=== PATIENT | male | born 1945 | race Caucasian/White ===

== ENCOUNTER 2016-12-18 08:36 | Outpatient (CLI) | payer OTHER ==
[~2016-12-18] VITALS: Ht 170.2 cm; Wt 83.0 kg
[~2016-12-18 08:36] MED LIST: ASPI1TAB PO; CRES10TA32 PO; DORZ2SOL5 OU; LATA5OPD OU; MAGN500C2 PO; METO1TAB7 PO; PANT40TA2 PO
[2016-12-18] MEDS ORDERED: NS 1,000 ML IV SCH (08:45)
[2016-12-18] MEDS ORDERED: PROPOFOL 200 MG/20 ML VIAL As Ordered ONE (09:22)
--- NOTE | 2016-12-18 09:43 | ROOR ---
Patient Name: Abdirizak Sotomayor Procedure Date: 12/18/2016 9:29 AM Date of : 1945 Age: 71 Room: [facility] Gender: Male Note Status: Finalized Procedure: Total Colonoscopy to Cecum Indications: High risk colon cancer surveillance: Personal history of colonic polyps, Last colonoscopy: 2011 Providers: Jose Nassar MD Referring MD: Trina VAUGHAN MD Requesting Provider: Medicines: Monitored Anesthesia Care Complications: No immediate complications. Procedure: Pre-Anesthesia Assessment: - The heart rate, respiratory rate, oxygen saturations, blood pressure, adequacy of pulmonary ventilation, and response to care were monitored throughout the procedure. The Colonoscope was introduced through the anus and advanced to the cecum, identified by appendiceal orifice and ileocecal valve. The colonoscopy was performed without difficulty. The patient tolerated the procedure well. The quality of the bowel preparation was excellent. Findings: The perianal and digital rectal examinations were normal. Non-bleeding internal hemorrhoids were found during retroflexion. The hemorrhoids were small and Grade I (internal hemorrhoids that do not prolapse). Multiple small and large-mouthed diverticula were found in the entire colon. The exam was otherwise without abnormality on direct and retroflexion views. Impression: - Non-bleeding internal hemorrhoids. - Diverticulosis in the entire examined colon. - The examination was otherwise normal on direct and retroflexion views. - No specimens collected. - The exam was otherwise normal to the cecum. Recommendation: - Patient has a contact number available for emergencies. The signs and symptoms of potential delayed complications were discussed with the patient. Return to normal activities tomorrow. Written discharge instructions were provided to the patient. - High fiber diet. - Discharge patient to home. - Continue present medications. - Repeat colonoscopy for symptoms only. - Return to referring physician. - The findings and recommendations were discussed with the patient's family. Jose Nassar MD Jose Nassar MD 12/18/2016 9:43:25 AM This report has been signed electronically. Number of Addenda: 0 Note Initiated On: 12/18/2016 9:29 AM Estimated Blood Loss: Estimated blood loss: none.
[2016-12-18 10:13] VITALS: BP 132/73
== END 2016-12-18 10:15 | disposition home or self-care (01) ==
LOC: M OPP 08:36
PROVIDERS: ATTEND Internal Medicine Gastroenterology
DX: Z12.11 Encounter for screening for malignant neoplasm of colon (principal); Z86.010 Personal history of colon polyps; K64.0 First degree hemorrhoids; K57.30 Diverticulosis of large intestine without perforation or abscess without bleeding; I10 Essential (primary) hypertension; E78.5 Hyperlipidemia, unspecified; K57.92 Diverticulitis of intestine, part unspecified, without perforation or abscess without bleeding; R12 Heartburn; H40.9 Unspecified glaucoma; Z87.891 Personal history of nicotine dependence; Z79.82 Long term (current) use of aspirin; Z79.899 Other long term (current) drug therapy

== ENCOUNTER → 2018-02-10 | Outpatient (CLI) | payer OTHER ==
[2018-02-10 12:41] LABS: BASO # 0.1 10^3/uL (0.0-0.2); BASO % 0.5 % (0.0-1.0); EOS # 0.6 10^3/uL (0.0-0.50); EOS % 6.2 % (0.0-3.0); HEMATOCRIT 43.1 % (42.0-52.0); HEMOGLOBIN 14.7 g/dl (13.5-17.5); IMMATURE GRANULOCYTE % 0.5 % (0-3.0); LYMPH # 1.6 10^3/uL (1.5-4.5); LYMPH % 16.5 % (24.0-44.0); MEAN CORPUSCULAR HEMOGLOBIN 32.8 pg (27.0-33.0); MEAN CORPUSCULAR HGB CONC 34.1 g/dl (32.0-36.5); MEAN CORPUSCULAR VOLUME 96.2 fl (80.0-96.0); MONO # 1.2 10^3/uL (0.0-0.8); MONO % 12.7 % (0.0-5.0); NEUTROPHILS % 63.6 % (36.0-66.0); PLATELET COUNT, AUTOMATED 200 10^3/uL (150-450); RED BLOOD COUNT 4.48 10^6/uL (4.30-6.10); RED CELL DISTRIBUTION WIDTH 12.6 % (11.5-14.5); WHITE BLOOD COUNT 9.5 10^3/uL (4.0-10.0)
[2018-02-10 13:01] LABS: ALBUMIN/GLOBULIN RATIO 1.08 (1.00-1.93); ALKALINE PHOSPHATASE 115 U/L (45-117); ALT/SGPT 41 U/L (12-78); ANION GAP 5 MEQ/L (8-16); AST/SGOT 64 U/L (7-37); BILIRUBIN,TOTAL 0.5 MG/DL (0.2-1.0); BLOOD UREA NITROGEN 11 MG/DL (7-18); CALCIUM LEVEL 9.5 MG/DL (8.8-10.2); CARBON DIOXIDE LEVEL 27 MEQ/L (21-32); CHLORIDE LEVEL 110 MEQ/L (98-107); CHOLESTEROL LEVEL 190 MG/DL (<200); CHOLESTEROL RISK RATIO 3.392 (<5); CREATININE FOR GFR 1.09 MG/DL (0.70-1.30); GLOMERULAR FILTRATION RATE > 60.0 (>42); GLUCOSE, FASTING 89 MG/DL (70-100); HDL CHOLESTEROL 56 MG/DL (>40); LDL CHOLESTEROL 110 MG/DL (<100); NON-HDL-C 134 MG/DL; POTASSIUM SERUM 5.2 MEQ/L (3.5-5.1); SODIUM LEVEL 142 MEQ/L (136-145); TOTAL PROTEIN 7.7 GM/DL (6.4-8.2); TRIGLYCERIDES LEVEL 118 MG/DL (<150)
== END ==
LOC: M WUC 09:49
DX: I10 Essential (primary) hypertension (principal)
CPT/HCPCS: 80053

== ENCOUNTER → 2019-02-11 | Outpatient (CLI) | payer OTHER ==
[~2019-02-11] MED LIST changes: -ASPI1TAB PO; +ASPI81TA26 PO; +CRES10TA PO; -CRES10TA32 PO; +LATA0.0013 OU; -LATA5OPD OU; -PANT40TA2 PO; +PANT40TA3 PO
[2019-02-11 11:07] LABS: ALBUMIN 3.6 GM/DL (3.2-5.2); ALT/SGPT 33 U/L (12-78); BILIRUBIN,TOTAL 0.4 MG/DL (0.2-1.0); BLOOD UREA NITROGEN 17 MG/DL (7-18); CALCIUM LEVEL 9.3 MG/DL (8.8-10.2); CARBON DIOXIDE LEVEL 26 MEQ/L (21-32); CHLORIDE LEVEL 110 MEQ/L (98-107); CHOLESTEROL LEVEL 167 MG/DL (<200); GLOMERULAR FILTRATION RATE > 60.0 (>42); GLUCOSE, FASTING 87 MG/DL (70-100); HDL CHOLESTEROL 53 MG/DL (>40); LDL CHOLESTEROL 95 MG/DL (<100); NON-HDL-C 114 MG/DL; POTASSIUM SERUM 4.7 MEQ/L (3.5-5.1); SODIUM LEVEL 141 MEQ/L (136-145); TOTAL PROTEIN 7.3 GM/DL (6.4-8.2); TRIGLYCERIDES LEVEL 94 MG/DL (<150)
[2019-02-11 11:13] LABS: BASO # 0.1 10^3/uL (0.0-0.2); BASO % 0.6 % (0.0-1.0); EOS # 0.7 10^3/uL (0.0-0.5); EOS % 6.7 % (0.0-3.0); HEMATOCRIT 40.2 % (42.0-52.0); HEMOGLOBIN 13.8 g/dl (13.5-17.5); LYMPH # 1.6 10^3/uL (1.5-5.0); LYMPH % 16.3 % (24.0-44.0); MEAN CORPUSCULAR HGB CONC 34.3 g/dl (32.0-36.5); MEAN CORPUSCULAR VOLUME 96.2 fl (80.0-96.0); MONO # 1.2 10^3/uL (0.0-0.8); MONO % 12.2 % (0.0-5.0); NEUTROPHILS # 6.3 10^3/uL (1.5-8.5); NEUTROPHILS % 63.4 % (36.0-66.0); PLATELET COUNT, AUTOMATED 197 10^3/uL (150-450); RED BLOOD COUNT 4.18 10^6/uL (4.30-6.10); WHITE BLOOD COUNT 9.9 10^3/uL (4.0-10.0)
== END ==
LOC: M WUC 08:32
PROVIDERS: ATTEND Family Medicine
DX: I10 Essential (primary) hypertension (principal)

== ENCOUNTER → 2020-02-15 | Outpatient (CLI) | payer OTHER ==
[~2020-02-15] MED LIST changes: +PANT40TA29 PO; -PANT40TA3 PO
[2020-02-15 12:32] LABS: BASO # 0.1 10^3/uL (0.0-0.2); BASO % 0.7 % (0.0-1.0); EOS # 0.6 10^3/uL (0.0-0.5); HEMATOCRIT 39.9 % (42.0-52.0); HEMOGLOBIN 13.2 g/dl (13.5-17.5); LYMPH # 1.9 10^3/uL (1.5-5.0); LYMPH % 22.1 % (24.0-44.0); MEAN CORPUSCULAR HEMOGLOBIN 31.7 pg (27.0-33.0); MEAN CORPUSCULAR HGB CONC 33.1 g/dl (32.0-36.5); MEAN CORPUSCULAR VOLUME 95.9 fl (80.0-96.0); MONO # 1.1 10^3/uL (0.0-0.8); MONO % 12.5 % (0.0-5.0); NEUTROPHILS # 4.9 10^3/uL (1.5-8.5); NEUTROPHILS % 56.9 % (36.0-66.0); PLATELET COUNT, AUTOMATED 192 10^3/uL (150-450); RED BLOOD COUNT 4.16 10^6/uL (4.30-6.10); WHITE BLOOD COUNT 8.6 10^3/uL (4.0-10.0)
[2020-02-15 13:15] LABS: ALBUMIN 3.6 GM/DL (3.2-5.2); ALT/SGPT 38 U/L (12-78); BILIRUBIN,TOTAL 0.5 MG/DL (0.2-1.0); BLOOD UREA NITROGEN 13 MG/DL (7-18); CALCIUM LEVEL 9.2 MG/DL (8.8-10.2); CARBON DIOXIDE LEVEL 24 MEQ/L (21-32); CHLORIDE LEVEL 110 MEQ/L (98-107); CHOLESTEROL LEVEL 171 MG/DL (<200); CREATININE FOR GFR 1.18 MG/DL (0.70-1.30); GLOMERULAR FILTRATION RATE > 60.0 (>42); GLUCOSE, FASTING 88 MG/DL (70-100); HDL CHOLESTEROL 57 MG/DL (>40); LDL CHOLESTEROL 95 MG/DL (<100); NON-HDL-C 114 MG/DL; POTASSIUM SERUM 4.1 MEQ/L (3.5-5.1); SODIUM LEVEL 142 MEQ/L (136-145); TOTAL PROTEIN 7.2 GM/DL (6.4-8.2); TRIGLYCERIDES LEVEL 95 MG/DL (<150)
== END ==
LOC: M WUC 09:32
PROVIDERS: ATTEND Family Medicine
DX: I10 Essential (primary) hypertension (principal)

== ENCOUNTER → 2020-06-30 | Outpatient (CLI) | payer OTHER ==
[2020-06-30 11:54] LABS: BASO # 0.1 10^3/uL (0.0-0.2); BASO % 0.6 % (0.0-1.0); EOS # 0.5 10^3/uL (0.0-0.5); HEMATOCRIT 41.3 % (42.0-52.0); HEMOGLOBIN 13.8 g/dl (13.5-17.5); LYMPH # 1.4 10^3/uL (1.5-5.0); LYMPH % 15.6 % (24.0-44.0); MEAN CORPUSCULAR HEMOGLOBIN 31.8 pg (27.0-33.0); MEAN CORPUSCULAR HGB CONC 33.4 g/dl (32.0-36.5); MEAN CORPUSCULAR VOLUME 95.2 fl (80.0-96.0); MONO # 1.2 10^3/uL (0.0-0.8); MONO % 13.2 % (2.0-8.0); NEUTROPHILS # 5.7 10^3/uL (1.5-8.5); NEUTROPHILS % 64.1 % (36.0-66.0); PLATELET COUNT, AUTOMATED 202 10^3/uL (150-450); RED BLOOD COUNT 4.34 10^6/uL (4.30-6.10); WHITE BLOOD COUNT 8.8 10^3/uL (4.0-10.0)
== END ==
LOC: M WUC 10:01
PROVIDERS: ATTEND Family Medicine
DX: R71.8 Other abnormality of red blood cells (principal)

== ENCOUNTER → 2020-11-28 | Outpatient (CLI) | payer OTHER ==
--- NOTE | 2020-11-28 21:36 | REP ---
INDICATION: R05 COUGH COMPARISON: 02/20/2010 TECHNIQUE: PA and lateral. FINDINGS: Mediastinum and cardiac silhouette are within normal limits and stable. Lung fernandez demonstrate chronic changes. Calcified hilar lymph nodes and scattered calcified pulmonary parenchymal granulomata are again identified and suggest chronic changes. No acute consolidation, effusion, or pneumothorax. Bridging osteophytes and degenerative changes to the thoracic spine noted. IMPRESSION: Chronic granulomatous disease. No acute process appreciated. <Electronically signed by Ralph Israel > 11/28/20 [id number]
== END ==
LOC: M WUC 11:32
PROVIDERS: ATTEND Nurse Practitioner Family
DX: R05 Cough (principal); D71 Functional disorders of polymorphonuclear neutrophils

== ENCOUNTER → 2021-02-14 | Outpatient (CLI) | payer OTHER ==
[2021-02-14 10:20] LABS: BASO # 0.1 10^3/uL (0.0-0.2); BASO % 0.7 % (0.0-1.0); EOS # 0.5 10^3/uL (0.0-0.5); HEMATOCRIT 38.7 % (42.0-52.0); HEMOGLOBIN 13.3 g/dl (13.5-17.5); LYMPH # 1.5 10^3/uL (1.5-5.0); LYMPH % 19.2 % (24.0-44.0); MEAN CORPUSCULAR HEMOGLOBIN 32.5 pg (27.0-33.0); MEAN CORPUSCULAR HGB CONC 34.4 g/dl (32.0-36.5); MEAN CORPUSCULAR VOLUME 94.6 fl (80.0-96.0); MONO # 0.9 10^3/uL (0.0-0.8); MONO % 12.2 % (2.0-8.0); NEUTROPHILS # 4.7 10^3/uL (1.5-8.5); NEUTROPHILS % 61.2 % (36.0-66.0); PLATELET COUNT, AUTOMATED 196 10^3/uL (150-450); RED BLOOD COUNT 4.09 10^6/uL (4.30-6.10); WHITE BLOOD COUNT 7.7 10^3/uL (4.0-10.0)
[2021-02-14 10:46] LABS: ALBUMIN 3.3 GM/DL (3.2-5.2); ALT/SGPT 23 U/L (12-78); BILIRUBIN,TOTAL 0.5 MG/DL (0.2-1.0); BLOOD UREA NITROGEN 11 MG/DL (7-18); CALCIUM LEVEL 9.1 MG/DL (8.8-10.2); CARBON DIOXIDE LEVEL 27 MEQ/L (21-32); CHLORIDE LEVEL 109 MEQ/L (98-107); CHOLESTEROL LEVEL 179 MG/DL (<200); CHOLESTEROL RISK RATIO 2.934 (<5); CREATININE FOR GFR 1.07 MG/DL (0.70-1.30); GLOMERULAR FILTRATION RATE > 60.0 (>42); GLUCOSE, FASTING 85 MG/DL (70-100); HDL CHOLESTEROL 61 MG/DL (>40); LDL CHOLESTEROL 101 MG/DL (<100); NON-HDL-C 118 MG/DL; POTASSIUM SERUM 4.5 MEQ/L (3.5-5.1); SODIUM LEVEL 140 MEQ/L (136-145); TRIGLYCERIDES LEVEL 83 MG/DL (<150)
== END ==
LOC: M WUC 09:24
PROVIDERS: ATTEND Family Medicine
DX: I10 Essential (primary) hypertension (principal)

== ENCOUNTER → 2022-02-13 | Outpatient (CLI) | payer OTHER ==
[2022-02-13 13:01] LABS: ALBUMIN 3.5 GM/DL (3.2-5.2); ALT/SGPT 28 U/L (12-78); BILIRUBIN,TOTAL 0.5 MG/DL (0.2-1.0); BLOOD UREA NITROGEN 13 MG/DL (7-18); CALCIUM LEVEL 9.3 MG/DL (8.8-10.2); CARBON DIOXIDE LEVEL 27 MEQ/L (21-32); CHLORIDE LEVEL 110 MEQ/L (98-107); CHOLESTEROL LEVEL 168 MG/DL (<200); CHOLESTEROL RISK RATIO 2.896 (<5); CREATININE FOR GFR 1.16 MG/DL (0.70-1.30); GLOMERULAR FILTRATION RATE > 60.0 (>42); GLUCOSE, FASTING 99 MG/DL (70-100); HDL CHOLESTEROL 58 MG/DL (>40); LDL CHOLESTEROL 90 MG/DL (<100); NON-HDL-C 110 MG/DL; POTASSIUM SERUM 5.5 MEQ/L (3.5-5.1); SODIUM LEVEL 141 MEQ/L (136-145); TOTAL PROTEIN 7.2 GM/DL (6.4-8.2); TRIGLYCERIDES LEVEL 98 MG/DL (<150)
== END ==
LOC: M WUC 09:11
PROVIDERS: ATTEND Nurse Practitioner Family
DX: E78.2 Mixed hyperlipidemia (principal); I10 Essential (primary) hypertension

== ENCOUNTER → 2023-02-13 | Outpatient (CLI) | payer OTHER ==
[2023-02-13 12:25] LABS: BASO # 0.1 10^3/uL (0.0-0.2); BASO % 0.7 % (0.0-1.0); EOS # 0.5 10^3/uL (0.0-0.5); EOS % 6.1 % (0.0-3.0); HEMATOCRIT 40.2 % (42.0-52.0); HEMOGLOBIN 13.6 g/dl (13.5-17.5); LYMPH # 1.5 10^3/uL (1.5-5.0); LYMPH % 17.7 % (24.0-44.0); MEAN CORPUSCULAR HEMOGLOBIN 32.3 pg (27.0-33.0); MEAN CORPUSCULAR HGB CONC 33.8 g/dl (32.0-36.5); MEAN CORPUSCULAR VOLUME 95.5 fl (80.0-96.0); MONO # 1.1 10^3/uL (0.0-0.8); MONO % 13.2 % (2.0-8.0); NEUTROPHILS # 5.3 10^3/uL (1.5-8.5); NEUTROPHILS % 61.7 % (36.0-66.0); PLATELET COUNT, AUTOMATED 238 10^3/uL (150-450); RED BLOOD COUNT 4.21 10^6/uL (4.30-6.10); WHITE BLOOD COUNT 8.5 10^3/uL (4.0-10.0)
[2023-02-13 12:54] LABS: ALBUMIN 3.7 G/DL (3.2-5.2); ALKALINE PHOSPHATASE 106 U/L (46-116); ALT/SGPT 26 U/L (7.0-40); AST/SGOT 42 U/L (<34); BILIRUBIN,TOTAL 0.6 MG/DL (0.3-1.2); BLOOD UREA NITROGEN 12 MG/DL (9-23); CALCIUM LEVEL 9.4 MG/DL (8.3-10.6); CARBON DIOXIDE LEVEL 25 MMOL/L (20-31); CHLORIDE LEVEL 104 MMOL/L (98-107); CREATININE FOR GFR 1.13 MG/DL (0.70-1.30); GLOMERULAR FILTRATION RATE > 60.0 (>42); GLUCOSE, FASTING 92 MG/DL (74-106); POTASSIUM SERUM 4.6 MMOL/L (3.5-5.1); SODIUM LEVEL 138 MMOL/L (136-145); TOTAL PROTEIN 7.5 G/DL (5.7-8.2)
== END ==
LOC: M WUC 09:14
PROVIDERS: ATTEND Nurse Practitioner Family
DX: I10 Essential (primary) hypertension (principal)

== ENCOUNTER → 2023-05-17 | Outpatient (CLI) | payer OTHER ==
[2023-05-17 12:55] LABS: BASO % 0.5 % (0.0-1.0); EOS # 0.5 10^3/uL (0.0-0.5); EOS % 5.9 % (0.0-3.0); HEMOGLOBIN 13.7 g/dl (13.5-17.5); LYMPH # 1.3 10^3/uL (1.5-5.0); LYMPH % 16.1 % (24.0-44.0); MEAN CORPUSCULAR HEMOGLOBIN 32.3 pg (27.0-33.0); MEAN CORPUSCULAR HGB CONC 34.3 g/dl (32.0-36.5); MEAN CORPUSCULAR VOLUME 94.3 fl (80.0-96.0); MONO % 12.4 % (2.0-8.0); NEUTROPHILS # 5.2 10^3/uL (1.5-8.5); NEUTROPHILS % 64.7 % (36.0-66.0); PLATELET COUNT, AUTOMATED 223 10^3/uL (150-450); RED BLOOD COUNT 4.24 10^6/uL (4.30-6.10)
[2023-05-17 13:25] LABS: BLOOD UREA NITROGEN 14 MG/DL (9-23); CALCIUM LEVEL 8.8 MG/DL (8.3-10.6); CARBON DIOXIDE LEVEL 25 MMOL/L (20-31); CHLORIDE LEVEL 109 MMOL/L (98-107); CREATININE FOR GFR 1.15 MG/DL (0.70-1.30); GLOMERULAR FILTRATION RATE > 60.0 (>42); GLUCOSE, FASTING 83 MG/DL (74-106); POTASSIUM SERUM 4.6 MMOL/L (3.5-5.1); SODIUM LEVEL 141 MMOL/L (136-145)
== END ==
LOC: M WUC 09:20
PROVIDERS: ATTEND Nurse Practitioner Family
DX: I10 Essential (primary) hypertension (principal)

== ENCOUNTER → 2024-02-21 | Outpatient (CLI) | payer OTHER ==
[2024-02-21 12:31] LABS: BASO # 0.1 10^3/uL (0.0-0.2); BASO % 0.5 % (0.0-1.0); EOS # 0.5 10^3/uL (0.0-0.5); EOS % 4.6 % (0.0-3.0); HEMATOCRIT 39.2 % (42.0-52.0); HEMOGLOBIN 13.4 g/dl (13.5-17.5); LYMPH # 1.1 10^3/uL (1.5-5.0); LYMPH % 11.3 % (24.0-44.0); MEAN CORPUSCULAR HEMOGLOBIN 32.3 pg (27.0-33.0); MEAN CORPUSCULAR HGB CONC 34.2 g/dl (32.0-36.5); MEAN CORPUSCULAR VOLUME 94.5 fl (80.0-96.0); MONO # 1.3 10^3/uL (0.0-0.8); MONO % 12.8 % (2.0-8.0); NEUTROPHILS % 70.3 % (36.0-66.0); PLATELET COUNT, AUTOMATED 207 10^3/uL (150-450); RED BLOOD COUNT 4.15 10^6/uL (4.30-6.10)
[2024-02-21 12:56] LABS: ALBUMIN 3.3 G/DL (3.2-5.2); ALKALINE PHOSPHATASE 109 U/L (40-129); ALT/SGPT 29 U/L (7.0-40); AST/SGOT 54 U/L (<34); BILIRUBIN,TOTAL 0.7 MG/DL (0.3-1.2); BLOOD UREA NITROGEN 14 MG/DL (9-23); CALCIUM LEVEL 9.4 MG/DL (8.3-10.6); CARBON DIOXIDE LEVEL 24 MMOL/L (20-31); CHLORIDE LEVEL 108 MMOL/L (98-107); CREATININE FOR GFR 1.09 MG/DL (0.70-1.30); GLOMERULAR FILTRATION RATE > 60.0 (>42); GLUCOSE, FASTING 99 MG/DL (74-106); POTASSIUM SERUM 4.4 MMOL/L (3.5-5.1); SODIUM LEVEL 141 MMOL/L (136-145); TOTAL PROTEIN 7.4 G/DL (5.7-8.2)
== END ==
LOC: M WUC 09:18
PROVIDERS: ATTEND Nurse Practitioner Family
DX: I10 Essential (primary) hypertension (principal)

== ENCOUNTER 2024-11-11 15:11 | Inpatient (IN) | payer OTHER, MEDICARE ==
[~2024-11-11] VITALS: Ht 170.2 cm; Wt 75.8 kg
[~2024-11-11 15:11] MED LIST changes: -CALC500T61 PO; -MAGN400T2 PO; -NORV5TAB PO; -ROSU10TA61 PO; -XALA0.007 OU
[2024-11-11] MEDS ORDERED: ROSU10TA61 PO (16:52)
[2024-11-11] MEDS ORDERED: XALA0.007 OU (16:52)
[2024-11-11] MEDS ORDERED: HOME MED LIST COMPLETE! XX SCH (16:55)
[2024-11-11 18:21] LABS: BASO # 0.0 10^3/uL (0.0-0.2); BASO % 0.1 % (0.0-1.0); EOS # 0.0 10^3/uL (0.0-0.5); EOS % 0.0 % (0.0-3.0); LYMPH # 0.8 10^3/uL (1.5-5.0); LYMPH % 5.6 % (24.0-44.0); MONO # 0.9 10^3/uL (0.0-0.8); MONO % 6.3 % (2.0-8.0); NEUTROPHILS # 12.2 10^3/uL (1.5-8.5); NEUTROPHILS % 87.5 % (36.0-66.0); PLATELET COUNT, AUTOMATED 291 10^3/uL (150-450)
[2024-11-11] MEDS: NS 500 ML IV ONE (18:40)
[2024-11-11 20:03] LABS: CALCIUM LEVEL 8.0 MG/DL (8.3-10.6); CARBON DIOXIDE LEVEL 12.0 MMOL/L (20-31); CHLORIDE LEVEL 103.0 MMOL/L (98-107); CREATININE FOR GFR 4.81 MG/DL (0.70-1.30); GLOMERULAR FILTRATION RATE 11.6 (>42); MAGNESIUM LEVEL 0.7 MG/DL (1.8-2.4); POTASSIUM SERUM 5.7 MMOL/L (3.5-5.1); SODIUM LEVEL 140.0 MMOL/L (136-145)
[2024-11-11] MEDS: MAG SULF 1GM/100ML (MAG RUN) 1 GM in IV 1 EA IV ONE (20:23)
[2024-11-11 22:49] LABS: CALCIUM LEVEL 7.3 MG/DL (8.3-10.6); CARBON DIOXIDE LEVEL 12.0 MMOL/L (20-31); CHLORIDE LEVEL 106.0 MMOL/L (98-107); CREATININE FOR GFR 4.71 MG/DL (0.70-1.30); GLOMERULAR FILTRATION RATE 11.9 (>42); MAGNESIUM LEVEL 1.6 MG/DL (1.8-2.4); POTASSIUM SERUM 5.1 MMOL/L (3.5-5.1); SODIUM LEVEL 141.0 MMOL/L (136-145)
[2024-11-11] MEDS ORDERED: ONDANSETRON 4MG 2ML VIAL IV PRN (23:45)
[2024-11-12] LABS: KETONE, URINE AUTO RFX TRACE mg/dL (NEGATIVE); MUCUS, URINE RFX SMALL (NEGATIVE); NITRITE, URINE AUTO RFX NEGATIVE (NEGATIVE); RBC, URINE AUTO RFX 1 /HPF (0-3); SQUAM EPITHELIAL CELL UR AURFX 2 /HPF (0-6); WBC, URINE AUTO RFX 2 /HPF (0-3)
[2024-11-12] MEDS: LR 1,000 ML IV SCH (00:05)
[2024-11-12 00:25] LABS: LEUKOCYTE ESTERASE UR AUTO RFX 2+ (NEGATIVE)
[2024-11-12 00:38] LABS: BASO # 0.0 10^3/uL (0.0-0.2); BASO % 0.1 % (0.0-1.0); EOS # 0.0 10^3/uL (0.0-0.5); EOS % 0.0 % (0.0-3.0); LYMPH # 0.8 10^3/uL (1.5-5.0); LYMPH % 4.9 % (24.0-44.0); MONO # 1.3 10^3/uL (0.0-0.8); MONO % 8.7 % (2.0-8.0); NEUTROPHILS # 13.1 10^3/uL (1.5-8.5); NEUTROPHILS % 86.0 % (36.0-66.0); PLATELET COUNT, AUTOMATED 250 10^3/uL (150-450)
[2024-11-12 00:52] LABS: VITAMIN B12 LEVEL 671.0 PG/ML (211-911)
[2024-11-12 00:54] LABS: ALT/SGPT 16.0 U/L (7.0-40); AST/SGOT 22.0 U/L (<34); CALCIUM LEVEL 7.6 MG/DL (8.3-10.6); CARBON DIOXIDE LEVEL 12.0 MMOL/L (20-31); CHLORIDE LEVEL 104.0 MMOL/L (98-107); CREATININE FOR GFR 4.98 MG/DL (0.70-1.30); GLOMERULAR FILTRATION RATE 11.2 (>42); MAGNESIUM LEVEL 1.1 MG/DL (1.8-2.4); POTASSIUM SERUM 4.7 MMOL/L (3.5-5.1); SODIUM LEVEL 140.0 MMOL/L (136-145)
[2024-11-12] MEDS: MAG SULF 1GM/100ML (MAG RUN) 1 GM in IV 1 EA IV SCH (02:54)
[2024-11-12] MEDS: NS (Normal Saline) 0.9% 1,000 ML IV STA (02:54)
[2024-11-12 06:40] LABS: BASO # 0.0 10^3/uL (0.0-0.2); BASO % 0.1 % (0.0-1.0); EOS # 0.0 10^3/uL (0.0-0.5); EOS % 0.0 % (0.0-3.0); LYMPH # 0.8 10^3/uL (1.5-5.0); LYMPH % 5.7 % (24.0-44.0); MONO # 1.3 10^3/uL (0.0-0.8); MONO % 9.1 % (2.0-8.0); NEUTROPHILS # 11.7 10^3/uL (1.5-8.5); NEUTROPHILS % 84.7 % (36.0-66.0); PLATELET COUNT, AUTOMATED 204 10^3/uL (150-450)
[2024-11-12 07:11] LABS: CALCIUM LEVEL 7.0 MG/DL (8.3-10.6); CARBON DIOXIDE LEVEL 13.0 MMOL/L (20-31); CHLORIDE LEVEL 106.0 MMOL/L (98-107); CREATININE FOR GFR 4.82 MG/DL (0.70-1.30); GLOMERULAR FILTRATION RATE 11.6 (>42); MAGNESIUM LEVEL 1.9 MG/DL (1.8-2.4); POTASSIUM SERUM 4.3 MMOL/L (3.5-5.1); SODIUM LEVEL 139.0 MMOL/L (136-145)
[2024-11-12 08:02] LABS: C REACTIVE PROTEIN QUANTITATIV 0.74 MG/DL (<1.0)
[2024-11-12] MEDS: PANTOPRAZOLE 40MG VIAL IV SCH (08:11)
[2024-11-12] MEDS: SODIUM BICARBONATE 150 MEQ in D5W 1,000 ML IV SCH (09:16)
[2024-11-12 14:50] VITALS: BP 127/77; TEMP 97.7; O2SAT 98
[2024-11-12 16:48] LABS: CALCIUM LEVEL 6.8 MG/DL (8.3-10.6); CARBON DIOXIDE LEVEL 18.0 MMOL/L (20-31); CHLORIDE LEVEL 106.0 MMOL/L (98-107); CREATININE FOR GFR 4.52 MG/DL (0.70-1.30); GLOMERULAR FILTRATION RATE 12.5 (>42); POTASSIUM SERUM 3.7 MMOL/L (3.5-5.1); SODIUM LEVEL 141.0 MMOL/L (136-145)
[2024-11-12 19:47] VITALS: BP 111/72; TEMP 97.9; O2SAT 99
[2024-11-12] MEDS: ASPIRIN 81 MG ENTERIC TABLET PO SCH (20:57)
[2024-11-12] MEDS: DORZOLAMIDE/TIMOLOL 10 ML OPHTHALMIC SOLN OU SCH (20:57)
[2024-11-12] MEDS: LATANOPROST 0.005% OPHTH SOLN 2.5 ML OU SCH (20:57)
[2024-11-12] MEDS: HEPARIN SOD 5000 UNITS/ML 1 ML VIAL/SYRINGE SQ SCH (21:00)
[2024-11-13 03:43] VITALS: BP 115/73; TEMP 97.9; O2SAT 98
[2024-11-13 06:20] LABS: BASO # 0.0 10^3/uL (0.0-0.2); BASO % 0.1 % (0.0-1.0); EOS # 0.1 10^3/uL (0.0-0.5); EOS % 0.5 % (0.0-3.0); LYMPH # 1.3 10^3/uL (1.5-5.0); LYMPH % 13.6 % (24.0-44.0); MONO # 1.1 10^3/uL (0.0-0.8); MONO % 12.3 % (2.0-8.0); NEUTROPHILS # 6.8 10^3/uL (1.5-8.5); NEUTROPHILS % 73.2 % (36.0-66.0); PLATELET COUNT, AUTOMATED 154 10^3/uL (150-450)
[2024-11-13 06:48] LABS: CALCIUM LEVEL 6.3 MG/DL (8.3-10.6); CARBON DIOXIDE LEVEL 26.0 MMOL/L (20-31); CHLORIDE LEVEL 101.0 MMOL/L (98-107); CREATININE FOR GFR 4.0 MG/DL (0.70-1.30); GLOMERULAR FILTRATION RATE 14.5 (>42); MAGNESIUM LEVEL 1.2 MG/DL (1.8-2.4); POTASSIUM SERUM 3.1 MMOL/L (3.5-5.1); SODIUM LEVEL 142.0 MMOL/L (136-145)
[2024-11-13] MEDS: MAG SULF 1GM/100ML (MAG RUN) 1 GM in IV 1 EA IV SCH (08:15)
[2024-11-13] MEDS: KCL 20MEQ in NS 1000ML 1,000 ML IV SCH (08:15)
[2024-11-13] MEDS: ROSUVASTATIN 10 MG TAB PO SCH (08:16)
[2024-11-13] MEDS: METOPROLOL SUCC. 50 MG *XL* TAB PO SCH (08:17)
[2024-11-13] MEDS: POTASSIUM CHLORIDE 10MEQ SR TABLET PO ONE (08:32)
[2024-11-13] MEDS: CALCIUM CARBONATE 500 MG CHEW U/D PO SCH (09:41)
[2024-11-13 12:00] VITALS: BP 131/76; TEMP 97.5; O2SAT 96
[2024-11-13 12:26] LABS: TOTAL 25(OH) VITAMIN D 76.4 NG/ML (20.0-100.0)
[2024-11-13] MEDS: CALCIUM GLUCONATE 1,000 MG in DEXTROSE 5% (D5W) MINI-BAG PLU 100 ML IV ONE (12:45)
[2024-11-13 20:27] VITALS: BP 108/72; TEMP 97.9; O2SAT 97
[2024-11-14 04:17] VITALS: BP 125/71; TEMP 97.9; O2SAT 96
[2024-11-14 06:18] LABS: BASO # 0.0 10^3/uL (0.0-0.2); BASO % 0.2 % (0.0-1.0); EOS # 0.1 10^3/uL (0.0-0.5); EOS % 0.7 % (0.0-3.0); LYMPH # 0.9 10^3/uL (1.5-5.0); LYMPH % 11.2 % (24.0-44.0); MONO # 1.3 10^3/uL (0.0-0.8); MONO % 15.3 % (2.0-8.0); NEUTROPHILS # 5.9 10^3/uL (1.5-8.5); NEUTROPHILS % 72.1 % (36.0-66.0); PLATELET COUNT, AUTOMATED 144 10^3/uL (150-450)
[2024-11-14 06:58] LABS: CALCIUM LEVEL 6.9 MG/DL (8.3-10.6); CARBON DIOXIDE LEVEL 24.0 MMOL/L (20-31); CHLORIDE LEVEL 106.0 MMOL/L (98-107); CREATININE FOR GFR 3.27 MG/DL (0.70-1.30); GLOMERULAR FILTRATION RATE 18.5 (>42); MAGNESIUM LEVEL 1.8 MG/DL (1.8-2.4); POTASSIUM SERUM 3.9 MMOL/L (3.5-5.1); SODIUM LEVEL 140.0 MMOL/L (136-145)
[2024-11-14] MEDS: PANTOPRAZOLE 40MG TAB PO SCH (09:29)
[2024-11-14] MEDS: MAGNESIUM OXIDE 400 MG TAB PO SCH (09:29)
[2024-11-14 12:00] VITALS: BP 111/75; TEMP 98.1; O2SAT 97
[2024-11-14 20:25] VITALS: BP 136/76; TEMP 98.2; O2SAT 98
[2024-11-15 05:57] VITALS: BP 157/84; TEMP 98.6; O2SAT 97
[2024-11-15 06:15] LABS: BASO # 0.0 10^3/uL (0.0-0.2); BASO % 0.1 % (0.0-1.0); EOS # 0.1 10^3/uL (0.0-0.5); EOS % 1.5 % (0.0-3.0); LYMPH # 1.0 10^3/uL (1.5-5.0); LYMPH % 12.9 % (24.0-44.0); MONO # 1.2 10^3/uL (0.0-0.8); MONO % 14.8 % (2.0-8.0); NEUTROPHILS # 5.7 10^3/uL (1.5-8.5); NEUTROPHILS % 70.2 % (36.0-66.0); PLATELET COUNT, AUTOMATED 129 10^3/uL (150-450)
[2024-11-15 06:50] LABS: CALCIUM LEVEL 6.6 MG/DL (8.3-10.6); CARBON DIOXIDE LEVEL 21.0 MMOL/L (20-31); CHLORIDE LEVEL 111.0 MMOL/L (98-107); CREATININE FOR GFR 2.84 MG/DL (0.70-1.30); GLOMERULAR FILTRATION RATE 21.9 (>42); MAGNESIUM LEVEL 1.4 MG/DL (1.8-2.4); POTASSIUM SERUM 4.3 MMOL/L (3.5-5.1); SODIUM LEVEL 145.0 MMOL/L (136-145)
[2024-11-15] MEDS: MAG SULF 1GM/100ML (MAG RUN) 1 GM in IV 1 EA IV SCH (08:28)
[2024-11-15 12:00] VITALS: BP 166/85; TEMP 97.9; O2SAT 99
[2024-11-15 12:18] VITALS: BP 166/85
[2024-11-15] MEDS: amLODIPine 5 MG TAB PO SCH (12:18)
[2024-11-15] MEDS ORDERED: CALC500T61 PO (12:22)
[2024-11-15] MEDS ORDERED: MAGN400T2 PO (12:22)
[2024-11-15] MEDS ORDERED: NORV5TAB PO (12:22)
== END 2024-11-15 14:17 | disposition home or self-care (01) | DRG 683 ==
LOC: M ED 15:11 → M ED INP 23:30 → M MSPAV 11-12 14:50
PROVIDERS: ADMIT Internal Medicine; ATTEND Internal Medicine
DX: N17.9 Acute kidney failure, unspecified (principal); E87.20 Acidosis, unspecified; I10 Essential (primary) hypertension; E78.5 Hyperlipidemia, unspecified; K21.9 Gastro-esophageal reflux disease without esophagitis; E86.0 Dehydration; E87.5 Hyperkalemia; E83.42 Hypomagnesemia; H40.9 Unspecified glaucoma; Z79.899 Other long term (current) drug therapy; Z79.82 Long term (current) use of aspirin; Z87.891 Personal history of nicotine dependence; K52.9 Noninfective gastroenteritis and colitis, unspecified; D64.9 Anemia, unspecified

== ENCOUNTER → 2024-11-11 | Outpatient (CLI) | payer OTHER ==
[~2024-11-11] MED LIST changes: +CALC500T61 PO; +MAGN400T2 PO; +NORV5TAB PO; +ROSU10TA61 PO; +XALA0.007 OU
[2024-11-11 12:44] LABS: BASO # 0.0 10^3/uL (0.0-0.2); BASO % 0.2 % (0.0-1.0); EOS # 0.0 10^3/uL (0.0-0.5); EOS % 0.0 % (0.0-3.0); LYMPH # 1.0 10^3/uL (1.5-5.0); LYMPH % 7.1 % (24.0-44.0); MONO # 1.0 10^3/uL (0.0-0.8); MONO % 6.6 % (2.0-8.0); NEUTROPHILS # 12.4 10^3/uL (1.5-8.5); NEUTROPHILS % 85.3 % (36.0-66.0); PLATELET COUNT, AUTOMATED 347 10^3/uL (150-450)
[2024-11-11 14:27] LABS: ALT/SGPT 21.0 U/L (7.0-40); AST/SGOT 26.0 U/L (<34); CALCIUM LEVEL 9.1 MG/DL (8.3-10.6); CARBON DIOXIDE LEVEL 12.0 MMOL/L (20-31); CHLORIDE LEVEL 102.0 MMOL/L (98-107); CREATININE FOR GFR 4.08 MG/DL (0.70-1.30); GLOMERULAR FILTRATION RATE 14.2 (>42); MAGNESIUM LEVEL 0.7 MG/DL (1.8-2.4); POTASSIUM SERUM 5.4 MMOL/L (3.5-5.1); SODIUM LEVEL 142.0 MMOL/L (136-145)
== END ==
LOC: M WUC 09:46
PROVIDERS: ATTEND Nurse Practitioner Family
DX: R19.7 Diarrhea, unspecified (principal); R06.02 Shortness of breath

== ENCOUNTER → 2024-11-19 | Outpatient (CLI) | payer OTHER, MEDICARE ==
[~2024-11-19] MED LIST changes: +CALC500T61 PO; +MAGN400T2 PO; +NORV5TAB PO; +ROSU10TA61 PO; +XALA0.007 OU
[2024-11-19 12:50] LABS: BASO # 0.1 10^3/uL (0.0-0.2); BASO % 0.7 % (0.0-1.0); EOS # 0.3 10^3/uL (0.0-0.5); EOS % 3.3 % (0.0-3.0); LYMPH # 1.4 10^3/uL (1.5-5.0); LYMPH % 15.8 % (24.0-44.0); MONO # 1.1 10^3/uL (0.0-0.8); MONO % 12.1 % (2.0-8.0); NEUTROPHILS # 5.9 10^3/uL (1.5-8.5); NEUTROPHILS % 67.8 % (36.0-66.0); PLATELET COUNT, AUTOMATED 231 10^3/uL (150-450)
[2024-11-19 13:31] LABS: CALCIUM LEVEL 8.6 MG/DL (8.3-10.6); CARBON DIOXIDE LEVEL 26.0 MMOL/L (20-31); CHLORIDE LEVEL 107.0 MMOL/L (98-107); CREATININE FOR GFR 2.38 MG/DL (0.70-1.30); GLOMERULAR FILTRATION RATE 27.1 (>42); MAGNESIUM LEVEL 1.1 MG/DL (1.8-2.4); POTASSIUM SERUM 5.2 MMOL/L (3.5-5.1); SODIUM LEVEL 144.0 MMOL/L (136-145)
== END ==
LOC: M WUC 10:15
PROVIDERS: ATTEND Nurse Practitioner Family
DX: N17.9 Acute kidney failure, unspecified (principal); E83.42 Hypomagnesemia

== ENCOUNTER → 2024-11-27 | Outpatient (CLI) | payer OTHER, MEDICARE ==
[~2024-11-27] MED LIST changes: +AMLO1TAB24 PO; +LISI10TA22 PO; +MAGN1TAB26 PO
[2024-11-27 15:15] LABS: ALT/SGPT 18.0 U/L (7.0-40); AST/SGOT 30.0 U/L (<34); CALCIUM LEVEL 8.1 MG/DL (8.3-10.6); CARBON DIOXIDE LEVEL 19.0 MMOL/L (20-31); CHLORIDE LEVEL 108.0 MMOL/L (98-107); CREATININE FOR GFR 2.34 MG/DL (0.70-1.30); GLOMERULAR FILTRATION RATE 27.6 (>42); POTASSIUM SERUM 5.4 MMOL/L (3.5-5.1); SODIUM LEVEL 140.0 MMOL/L (136-145)
[2024-11-27 15:17] LABS: BASO # 0.1 10^3/uL (0.0-0.2); BASO % 0.4 % (0.0-1.0); EOS # 0.3 10^3/uL (0.0-0.5); EOS % 2.9 % (0.0-3.0); LYMPH # 1.7 10^3/uL (1.5-5.0); LYMPH % 14.1 % (24.0-44.0); MONO # 1.2 10^3/uL (0.0-0.8); MONO % 9.9 % (2.0-8.0); NEUTROPHILS # 8.5 10^3/uL (1.5-8.5); NEUTROPHILS % 72.3 % (36.0-66.0); PLATELET COUNT, AUTOMATED 362 10^3/uL (150-450)
== END ==
LOC: M WUC 11:29
PROVIDERS: ATTEND Registered Nurse
DX: R19.7 Diarrhea, unspecified (principal)

== ENCOUNTER 2024-12-01 10:24 | Inpatient (IN) | payer OTHER, MEDICARE ==
[~2024-12-01] VITALS: Ht 170.2 cm; Wt 68.6 kg
[~2024-12-01 10:24] MED LIST changes: -AMLO1TAB24 PO; -LISI10TA22 PO; -MAGN1TAB26 PO
[2024-12-01] MEDS: NS 500 ML IV ONE (11:46)
[2024-12-01 11:58] LABS: BASO # 0.1 10^3/uL (0.0-0.2); BASO % 0.5 % (0.0-1.0); EOS # 0.3 10^3/uL (0.0-0.5); EOS % 3.5 % (0.0-3.0); LYMPH # 1.4 10^3/uL (1.5-5.0); LYMPH % 15.2 % (24.0-44.0); MONO # 1.0 10^3/uL (0.0-0.8); MONO % 10.6 % (2.0-8.0); NEUTROPHILS # 6.6 10^3/uL (1.5-8.5); NEUTROPHILS % 69.9 % (36.0-66.0); PLATELET COUNT, AUTOMATED 295 10^3/uL (150-450)
[2024-12-01 12:33] LABS: ALT/SGPT 12 U/L (7.0-40); AST/SGOT 20 U/L (<34); CALCIUM LEVEL 7.5 MG/DL (8.3-10.6); CARBON DIOXIDE LEVEL 15 MMOL/L (20-31); CHLORIDE LEVEL 111 MMOL/L (98-107); CREATININE FOR GFR 5.97 MG/DL (0.70-1.30); GLOMERULAR FILTRATION RATE 9.0 (>42); MAGNESIUM LEVEL < 0.5 MG/DL (1.8-2.4); POTASSIUM SERUM 5.6 MMOL/L (3.5-5.1); SODIUM LEVEL 142 MMOL/L (136-145)
[2024-12-01 13:06] LABS: KETONE, URINE AUTO RFX NEGATIVE (NEGATIVE); LEUKOCYTE ESTERASE UR AUTO RFX NEGATIVE (NEGATIVE); MUCUS, URINE RFX SMALL (NEGATIVE); NITRITE, URINE AUTO RFX NEGATIVE (NEGATIVE); RBC, URINE AUTO RFX 0 /HPF (0-3); SQUAM EPITHELIAL CELL UR AURFX 0 /HPF (0-6); WBC, URINE AUTO RFX 1 /HPF (0-3)
[2024-12-01] MEDS: MAG SULF 1GM/100ML (MAG RUN) 1 GM in IV 1 EA IV ONE (13:17)
[2024-12-01 13:40] LABS: VENOUS BASE EXCESS -14.1 (-2.0-2.0); VENOUS HCO3 13.5 MMOL/L (23.0-27.0); VENOUS O2 SATURATION 73.0 % (60.0-80.0); VENOUS PARTIAL PRESSURE CO2 37.7 mmHg (38.0-50.0); VENOUS PARTIAL PRESSURE O2 43.8 mmHg (30.0-50.0); VENOUS PH 7.172 UNITS (7.330-7.430); VENOUS STANDARD HCO3 13.2 MMOL/L; VENOUS TOTAL CO2 14.7 MMOL/L (24.0-28.0)
[2024-12-01] MEDS ORDERED: MAGN1TAB26 PO (14:02)
[2024-12-01] MEDS ORDERED: AMLO1TAB24 PO (14:02)
[2024-12-01] MEDS ORDERED: CALC500T61 PO (14:02)
[2024-12-01] MEDS ORDERED: LISI10TA22 PO (14:02)
[2024-12-01] MEDS ORDERED: HOME MED LIST COMPLETE! XX SCH (14:05)
[2024-12-01] MEDS: NS (Normal Saline) 0.9% 1,000 ML IV ONE (14:15)
[2024-12-01 14:26] LABS: POTASSIUM RANDOM URINE 36.0 MMOL/L; SODIUM,RANDOM URINE 36.0 MMOL/L
[2024-12-01] MEDS: PATIROMER SORBITEX CALCIUM 8.4GM POWDER PACKET PO ONE (14:54)
[2024-12-01 15:08] LABS: TOTAL PROTEIN,RANDOM URINE 59.0 MG/DL (0.0-14.0)
[2024-12-01 15:14] LABS: CPK CREATINE PHOSPHOKINASE 34 U/L (46-171)
[2024-12-01 15:20] LABS: OSMOLALITY SERUM 315 MOSM/KG (280-301)
[2024-12-01] MEDS: MAG SULF 1GM/100ML (MAG RUN) 1 GM in IV 1 EA IV SCH (17:16)
[2024-12-01] MEDS: NS (Normal Saline) 0.9% 1,000 ML IV SCH (17:16)
[2024-12-01] MEDS: DORZOLAMIDE/TIMOLOL 10 ML OPHTHALMIC SOLN OU SCH (21:00)
[2024-12-01] MEDS: ROSUVASTATIN 10 MG TAB PO SCH (21:00)
[2024-12-01] MEDS: LATANOPROST 0.005% OPHTH SOLN 2.5 ML OU SCH (21:00)
[2024-12-02 08:09] LABS: PLATELET COUNT, AUTOMATED 206 10^3/uL (150-450)
[2024-12-02] MEDS: PANTOPRAZOLE 40MG TAB PO SCH (08:11)
[2024-12-02 08:43] LABS: CALCIUM LEVEL 6.6 MG/DL (8.3-10.6); CARBON DIOXIDE LEVEL 12.0 MMOL/L (20-31); CHLORIDE LEVEL 116.0 MMOL/L (98-107); CREATININE FOR GFR 4.86 MG/DL (0.70-1.30); GLOMERULAR FILTRATION RATE 11.5 (>42); MAGNESIUM LEVEL 1.0 MG/DL (1.8-2.4); POTASSIUM SERUM 5.1 MMOL/L (3.5-5.1); SODIUM LEVEL 144.0 MMOL/L (136-145)
[2024-12-02 12:15] VITALS: BP 140/76; TEMP 97.2; O2SAT 93
[2024-12-02] MEDS: NS 0.45% 1,000 ML IV SCH (13:37)
[2024-12-02] MEDS: amLODIPine 5 MG TAB PO SCH (13:39)
[2024-12-02] MEDS: METOPROLOL SUCC. 50 MG *XL* TAB PO SCH (13:39)
[2024-12-02] MEDS: MAG SULF 1GM/100ML (MAG RUN) 1 GM in IV 1 EA IV SCH (14:05)
[2024-12-02 20:00] VITALS: BP 128/73; TEMP 97.5; O2SAT 99
[2024-12-02] MEDS: ASPIRIN 81 MG ENTERIC TABLET PO SCH (20:26)
[2024-12-02] MEDS: OYSTER SHELL CALCIUM 500 MG TAB PO SCH (20:26)
[2024-12-03 04:20] VITALS: BP 127/75; TEMP 97.3; O2SAT 95
[2024-12-03 06:22] LABS: PLATELET COUNT, AUTOMATED 207 10^3/uL (150-450)
[2024-12-03 07:00] LABS: CALCIUM LEVEL 7.1 MG/DL (8.3-10.6); CARBON DIOXIDE LEVEL 13.0 MMOL/L (20-31); CHLORIDE LEVEL 116.0 MMOL/L (98-107); CREATININE FOR GFR 4.01 MG/DL (0.70-1.30); GLOMERULAR FILTRATION RATE 14.5 (>42); MAGNESIUM LEVEL 1.3 MG/DL (1.8-2.4); POTASSIUM SERUM 4.8 MMOL/L (3.5-5.1); SODIUM LEVEL 144.0 MMOL/L (136-145)
[2024-12-03] MEDS: MAG SULF 1GM/100ML (MAG RUN) 1 GM in IV 1 EA IV SCH (09:46)
[2024-12-03 12:26] VITALS: BP 124/72; TEMP 97; O2SAT 98
[2024-12-03] MEDS: SODIUM BICARBONATE 150 MEQ in STERILE WATER LITER BAG 1,000 ML IV SCH (14:18)
[2024-12-03] MEDS: OYSTER SHELL CALCIUM 500 MG TAB PO SCH (16:46)
[2024-12-03 20:05] VITALS: BP 125/71; TEMP 97.3; O2SAT 98
[2024-12-03] MEDS: MAGNESIUM GLUCONATE 500 MG TAB PO SCH (20:45)
[2024-12-04 03:59] VITALS: BP 126/73; TEMP 97.3; O2SAT 98
[2024-12-04 06:56] LABS: PLATELET COUNT, AUTOMATED 199 10^3/uL (150-450)
[2024-12-04 07:18] LABS: CALCIUM LEVEL 7.6 MG/DL (8.3-10.6); CARBON DIOXIDE LEVEL 22.0 MMOL/L (20-31); CHLORIDE LEVEL 110.0 MMOL/L (98-107); CREATININE FOR GFR 3.4 MG/DL (0.70-1.30); GLOMERULAR FILTRATION RATE 17.6 (>42); MAGNESIUM LEVEL 1.5 MG/DL (1.8-2.4); POTASSIUM SERUM 3.9 MMOL/L (3.5-5.1); SODIUM LEVEL 145.0 MMOL/L (136-145)
[2024-12-04] MEDS: LR 1,000 ML IV SCH (10:31)
[2024-12-04 11:27] VITALS: BP 144/76; TEMP 97.5; O2SAT 99
[2024-12-04 20:29] VITALS: BP 143/75; TEMP 97.3; O2SAT 98
[2024-12-05 04:28] VITALS: BP 151/88; TEMP 97.3; O2SAT 97
[2024-12-05 06:28] LABS: PLATELET COUNT, AUTOMATED 202 10^3/uL (150-450)
[2024-12-05 06:58] LABS: CALCIUM LEVEL 7.8 MG/DL (8.3-10.6); CARBON DIOXIDE LEVEL 25.0 MMOL/L (20-31); CHLORIDE LEVEL 110.0 MMOL/L (98-107); CREATININE FOR GFR 3.01 MG/DL (0.70-1.30); GLOMERULAR FILTRATION RATE 20.4 (>42); IRON (FE) 53.0 UG/DL (65-175); MAGNESIUM LEVEL 1.1 MG/DL (1.8-2.4); PERCENT SATURATION 24.9 % (19.7-50.0); POTASSIUM SERUM 4.0 MMOL/L (3.5-5.1); SODIUM LEVEL 145.0 MMOL/L (136-145)
[2024-12-05 07:00] LABS: TOTAL 25(OH) VITAMIN D 55.0 NG/ML (20.0-100.0)
[2024-12-05 07:01] LABS: VITAMIN B12 LEVEL 509.0 PG/ML (211-911)
[2024-12-05] MEDS: MAG SULF 1GM/100ML (MAG RUN) 1 GM in IV 1 EA IV SCH (10:01)
[2024-12-05 11:29] VITALS: BP 149/83; TEMP 97.3; O2SAT 99
[2024-12-05 19:53] VITALS: BP 122/65; TEMP 97.2; O2SAT 98
[2024-12-06 03:44] VITALS: BP 150/70; TEMP 97.5; O2SAT 97
[2024-12-06 06:21] LABS: PLATELET COUNT, AUTOMATED 169 10^3/uL (150-450)
[2024-12-06 06:44] LABS: CALCIUM LEVEL 7.6 MG/DL (8.3-10.6); CARBON DIOXIDE LEVEL 24.0 MMOL/L (20-31); CHLORIDE LEVEL 110.0 MMOL/L (98-107); CREATININE FOR GFR 2.78 MG/DL (0.70-1.30); GLOMERULAR FILTRATION RATE 22.5 (>42); MAGNESIUM LEVEL 1.4 MG/DL (1.8-2.4); POTASSIUM SERUM 3.9 MMOL/L (3.5-5.1); SODIUM LEVEL 144.0 MMOL/L (136-145)
[2024-12-06 08:28] VITALS: BP 155/74
[2024-12-06] MEDS: DARBEPOETIN 100 MCG/0.5 ML *NON-DIALYSIS* SYRINGE SC SCH (10:50)
[2024-12-06] MEDS: MAG SULF 1GM/100ML (MAG RUN) 1 GM in IV 1 EA IV SCH (10:50)
[2024-12-06 12:00] VITALS: BP 147/73; TEMP 97.7; O2SAT 96
[2024-12-07] MEDS ORDERED: MAGNESIUM OXIDE 400 MG TAB PO SCH (21:00)
== END 2024-12-06 15:48 | disposition home or self-care (01) | DRG 641 ==
LOC: M ED 10:24 → M ED INP 15:56 → M MSPAV 12-02 11:58
PROVIDERS: ADMIT Family Medicine; ATTEND Family Medicine
DX: E83.42 Hypomagnesemia (principal); N17.9 Acute kidney failure, unspecified; E87.20 Acidosis, unspecified; I12.9 Hypertensive chronic kidney disease with stage 1 through stage 4 chronic kidney disease, or unspecified chronic kidney disease; E78.5 Hyperlipidemia, unspecified; K57.30 Diverticulosis of large intestine without perforation or abscess without bleeding; K21.9 Gastro-esophageal reflux disease without esophagitis; E86.0 Dehydration; I95.9 Hypotension, unspecified; E83.51 Hypocalcemia; H40.9 Unspecified glaucoma; Z89.021 Acquired absence of right finger(s); Z87.891 Personal history of nicotine dependence; E87.5 Hyperkalemia; D64.9 Anemia, unspecified; N28.1 Cyst of kidney, acquired; N18.9 Chronic kidney disease, unspecified; R19.7 Diarrhea, unspecified

== ENCOUNTER → 2024-12-07 | Outpatient (REF) | payer OTHER, MEDICARE ==
[~2024-12-07] MED LIST changes: +AMLO1TAB24 PO; +LISI10TA22 PO; +MAGN1TAB26 PO
[2024-12-07 19:10] LABS: BASO # 0.0 10^3/uL (0.0-0.2); BASO % 0.3 % (0.0-1.0); EOS # 0.3 10^3/uL (0.0-0.5); EOS % 3.5 % (0.0-3.0); LYMPH # 1.4 10^3/uL (1.5-5.0); LYMPH % 15.6 % (24.0-44.0); MONO # 1.3 10^3/uL (0.0-0.8); MONO % 14.1 % (2.0-8.0); NEUTROPHILS # 5.9 10^3/uL (1.5-8.5); NEUTROPHILS % 66.1 % (36.0-66.0); PLATELET COUNT, AUTOMATED 226 10^3/uL (150-450)
[2024-12-07 19:19] LABS: ALT/SGPT 11.0 U/L (7.0-40); AST/SGOT 20.0 U/L (<34); CALCIUM LEVEL 8.7 MG/DL (8.3-10.6); CARBON DIOXIDE LEVEL 25.0 MMOL/L (20-31); CHLORIDE LEVEL 108.0 MMOL/L (98-107); CREATININE FOR GFR 2.79 MG/DL (0.70-1.30); GLOMERULAR FILTRATION RATE 22.4 (>42); POTASSIUM SERUM 4.1 MMOL/L (3.5-5.1); SODIUM LEVEL 143.0 MMOL/L (136-145)
[2024-12-08 10:16] LABS: MAGNESIUM LEVEL 1.5 MG/DL (1.8-2.4)
== END ==
LOC: M LABWUC 17:16
PROVIDERS: ATTEND Nurse Practitioner Family
DX: I10 Essential (primary) hypertension (principal); E83.42 Hypomagnesemia; N17.9 Acute kidney failure, unspecified

== ENCOUNTER → 2024-12-15 | Outpatient (CLI) | payer MEDICARE, OTHER ==
[2024-12-15 12:47] LABS: CALCIUM LEVEL 9.5 MG/DL (8.3-10.6); CARBON DIOXIDE LEVEL 22.0 MMOL/L (20-31); CHLORIDE LEVEL 108.0 MMOL/L (98-107); CREATININE FOR GFR 2.54 MG/DL (0.70-1.30); GLOMERULAR FILTRATION RATE 25.0 (>42); MAGNESIUM LEVEL 1.2 MG/DL (1.8-2.4); POTASSIUM SERUM 5.0 MMOL/L (3.5-5.1); SODIUM LEVEL 140.0 MMOL/L (136-145)
== END ==
LOC: M WUC 09:19
PROVIDERS: ATTEND Nurse Practitioner Family
DX: E83.42 Hypomagnesemia (principal); N17.9 Acute kidney failure, unspecified

== ENCOUNTER → 2025-01-13 | Outpatient (CLI) | payer MEDICARE, OTHER ==
[2025-01-13 15:18] LABS: CALCIUM LEVEL 8.9 MG/DL (8.3-10.6); CARBON DIOXIDE LEVEL 24.0 MMOL/L (20-31); CHLORIDE LEVEL 108.0 MMOL/L (98-107); CREATININE FOR GFR 1.63 MG/DL (0.70-1.30); GLOMERULAR FILTRATION RATE 42.6 (>42); MAGNESIUM LEVEL 1.3 MG/DL (1.8-2.4); POTASSIUM SERUM 5.0 MMOL/L (3.5-5.1); SODIUM LEVEL 138.0 MMOL/L (136-145)
== END ==
LOC: M PLALAB 09:23
PROVIDERS: ATTEND Nurse Practitioner Family
DX: E83.42 Hypomagnesemia (principal); N17.9 Acute kidney failure, unspecified

== ENCOUNTER → 2025-02-22 | Outpatient (CLI) | payer OTHER ==
[~2025-02-22] MED LIST changes: -ROSU10TA61 PO; +ROSU10TA90 PO
[2025-02-22 13:25] LABS: BASO # 0.1 10^3/uL (0.0-0.2); BASO % 0.7 % (0.0-1.0); EOS # 0.3 10^3/uL (0.0-0.5); EOS % 4.2 % (0.0-3.0); LYMPH # 1.4 10^3/uL (1.5-5.0); LYMPH % 19.3 % (24.0-44.0); MONO # 0.9 10^3/uL (0.0-0.8); MONO % 12.6 % (2.0-8.0); NEUTROPHILS # 4.7 10^3/uL (1.5-8.5); NEUTROPHILS % 62.8 % (36.0-66.0); PLATELET COUNT, AUTOMATED 258 10^3/uL (150-450)
[2025-02-22 13:34] LABS: ALT/SGPT 13.0 U/L (7.0-40); AST/SGOT 22.0 U/L (<34); CALCIUM LEVEL 9.1 MG/DL (8.3-10.6); CARBON DIOXIDE LEVEL 25.0 MMOL/L (20-31); CHLORIDE LEVEL 107.0 MMOL/L (98-107); CREATININE FOR GFR 1.78 MG/DL (0.70-1.30); GLOMERULAR FILTRATION RATE 38.3 (>42); POTASSIUM SERUM 4.6 MMOL/L (3.5-5.1); SODIUM LEVEL 143.0 MMOL/L (136-145)
== END ==
LOC: M WUC 08:40
PROVIDERS: ATTEND Nurse Practitioner Family
DX: I10 Essential (primary) hypertension (principal)